=== PATIENT | female | born 1970 | race Caucasian/White ===

== ENCOUNTER 2024-11-13 22:33 | Emergency (ER) | payer BC ==
[~2024-11-13] VITALS: Ht 172.7 cm; Wt 70.9 kg
[2024-11-13 23:22] LABS: MEAN PLATELET VOLUME 7.9 FL (7.4-10.4); RED CELL DISTRIBUTION WIDTH 13.5 % (11.5-14.5)
[2024-11-13 23:30] LABS: CREATININE 0.86 MG/DL (0.40-0.90); TOTAL CARBON DIOXIDE 23.2 MMOL/L (24-32); eCRCL 77 ML/MIN; eGFR 69 ML/MIN
[2024-11-13 23:43] LABS: BANDS% (MANUAL) 1.0 % (0-10); EOSINOPHILS % (MANUAL) 2.0 % (0-6); LYMPHOCYTES % (MANUAL) 18.0 % (21-51); MONOCYTES % (MANUAL) 12.0 % (2-12); NEUTROPHILS % (MANUAL) 67.0 % (42-75)
[2024-11-13 23:44] LABS: PLATELET ESTIMATE NORMAL
--- NOTE | 2024-11-13 23:44 | Physician Documentation ---
History of Present Illness ~ Chief Complaint: Hyperglycemia Stated Complaint: HIGH KETONS Time Seen by MD: 23:42 OK to notify your PCP?: Yes Source: patient, RN/MD, RN notes reviewed, old records Mode of Arrival: POV Exam Limitations: no limitations HPI This patient is a 54-year-old female who presents to the ED with chief complaint of nausea and vomiting. Patient states she is a type 1 diabetic and has been having worsening nausea/vomiting since yesterday. Patient reports she did do a urine dip test tonight which showed she had high ketones in her urine. She also noted that her urine at the time appeared very dark. Patient states that these ketones in her urine, in addition to all of her symptoms over the past two days concerning for DKA. Patient notes that prior to arrival tonight, she did take Dramamine as well as Pepto-Bismol which she states has helped slightly improve her nausea. She states since her symptoms began yesterday she has been unable to keep down food and very little water; patient states that only recently she has been able to keep down a few sips of Gatorade. Patient denies any stomach issues or history of gastroparesis. Patient denies any other associated symptoms at this time. Patient denies any alleviating or exacerbating factors. Medication Reconciliation Allergies: Coded Allergies: No Known Allergies (Unverified , 11/14/24) Past Medical History Past Medical History: Kidney Stones, Diabetes, Lymphoma Past Surgical History: noncontributory Smoking Status: Never smoker Alcohol Use: None Drug Use: none Review of Systems All Other Systems at this time: Reviewed and Negative Gastrointestinal: Reports: nausea, vomiting Physical Exam Vital Signs: RN Vital Signs have been reviewed: Yes, Temperature: 97.9, Source: Oral, Heart Rate: 78, Respiratory Rate: 26, BP: 119/77, Pulse Oximetry: 99, Weight: 70.900 Oxygen Flow Rate: 0 Physical Exam General: The patient is well developed, well nourished, nontoxic appearing and is in no acute distress. Skin: [place], warm and dry with no rashes. HEENT: Head was normocephalic and atraumatic. Eyes - pupils equal, round, reactive to light and accommodation. Extraocular movements were intact. Conjunctivae were nonicteric. The mouth and oropharynx were clear with moist mucous membranes. There were no pharyngeal exudates or erythema. Neck: Supple and nontender. There was no jugular venous distention, lymphadenopathy, thyromegaly or masses. Chest: Clear to auscultation bilaterally without wheezes, rales or rhonchi. No accessory muscle use. No dullness to percussion. Heart: Rate regular and rhythmic. S1, S2. No murmurs. Palpation of the chest wall was normal. No rubs or thrills. Abdomen: Soft, nontender and nondistended. Positive bowel sounds. No guarding or rebound. No hepatosplenomegaly or palpable masses. Extremities: No cyanosis, clubbing or edema. The patient moves all extremities. Pulses were equal and symmetric. Neurologic: Cranial nerves II-XII were intact. Sensation was intact to light touch throughout. Motor strength was 5/5 in all four extremities. Deep tendon reflexes were intact in both upper and lower extremities. Psychologic: The patient was oriented to person, place and time. The patient demonstrated appropriate judgement and insight. Progress Progress Note RECORD REVIEW: Patient has no record of prior visits. Results/Orders Reviewed/noted all lab results: Yes Results/Orders Orders - AUTUMN DIAZ MD Urinalysis, Cult If Indicated (11/13/24 22:46) Hcg, Ur Ql (11/13/24 22:46) Drug Screen, Urine (11/13/24 23:45) Completed Orders - AUTUMN DIAZ MD Cbc/Diff (11/13/24 22:46) Lipase (11/13/24 22:46) CMP (11/13/24 22:46) Man Diff (11/13/24 23:07) Normal Saline 1000ml (0.9% Sodium Chlori (11/13/24 23:45) Ethanol (11/13/24 23:07) Normal Saline 1000ml (0.9% Sodium Chlori (11/14/24 01:00) Ondansetron Inj. (Zofran 4mg/2ml Vial) (11/14/24 02:20) Metoclopramide Inj (Reglan Inj) (11/14/24 02:20) Medications Received in ER Medications (Trade) Dose Ordered Sig/Beckie Route PRN Reason Start Time Stop Time Status Last Admin Dose Admin (0.9% sodium chloride (NS) 1000ml IV soln) 1,000 ml ONCE ONCE IVB 11/13/24 23:45 11/13/24 23:47 DC 11/14/24 00:06 1,000 ML Sodium Chloride 1,000 ml @ 1,000 mls/hr ONCE ONCE IV 11/14/24 01:00 11/14/24 01:59 DC 11/14/24 01:04 1,000 MLS/HR (Zofran 4mg/2ml vial) 4 mg ONCE ONCE IV 11/14/24 02:20 11/14/24 02:21 DC 11/14/24 02:36 4 MG (Reglan inj) 10 mg ONCE ONCE IV 11/14/24 02:20 11/14/24 02:21 DC 11/14/24 02:36 10 MG Vital Signs 11/13/24 11/13/24 11/14/24 11/14/24 22:36 23:21 00:00 00:11 Temp 97.9 97.9 Pulse 100 78 81 Resp 16 26 14 11 B/P (MAP) 124/81 119/77 (91) 123/76 (92) Pulse Ox 99 99 98 O2 Flow Rate 0 0 0 11/14/24 11/14/24 11/14/24 00:45 01:48 02:48 Temp 97.9 97.9 Pulse 74 73 81 Resp 20 15 14 B/P (MAP) 120/77 (91) 120/76 (91) 118/61 Pulse Ox 99 100 99 O2 Flow Rate 0 0 Laboratory Tests Test 11/13/24 22:43 11/13/24 23:07 Glucometer 170 H White Blood Count 7.8 Red Blood Count 5.26 Hemoglobin 15.0 Hematocrit 45.9 H Mean Corpuscular Volume 87.4 Mean Corpuscular Hemoglobin 28.5 Mean Corpuscular Hemoglobin Concent 32.6 L Red Cell Distribution Width 13.5 Platelet Count 298 Mean Platelet Volume 7.9 Neutrophils (%) (Auto) 63.7 Lymphocytes (%) (Auto) 18.4 L Monocytes (%) (Auto) 15.4 H Eosinophils (%) (Auto) 2.4 Basophils (%) (Auto) 0.1 Neutrophils # (Auto) 4.9 Lymphocytes # (Auto) 1.4 Monocytes # (Auto) 1.2 H Eosinophils # (Auto) 0.2 Basophils # (Auto) 0.0 CBC Comment Differential Total Cells Counted 100 Neutrophils % (Manual) 67.0 Band Neutrophils % 1.0 Lymphocytes % (Manual) 18.0 L Monocytes % (Manual) 12.0 Eosinophils % (Manual) 2.0 Platelet Estimate Normal Red Blood Cell Morphology Normal Basophilic Stippling Sodium Level 136 Potassium Level 4.0 Chloride Level 101 Carbon Dioxide Level 23.2 L Anion Gap 12 Blood Urea Nitrogen 17 Creatinine 0.86 Estimated GFR/1.73 m2 69 BUN/Creatinine Ratio 19.8 Glucose Level 185 H Calcium Level 9.1 Total Bilirubin 1.1 H Aspartate Amino Transf (AST/SGOT) 14 Alanine Aminotransferase (ALT/SGPT) 22 Alkaline Phosphatase 89 Total Protein 7.1 Albumin 3.9 Globulin 3.2 Albumin/Globulin Ratio 1.2 Lipase 13 L Chemistry Comments Ethyl Alcohol Level < 10 Re-Evaluation Re-Evaluation : Re-Evaluation: Improved, Unchanged Progress Patient was seen and examined. Patient is given reassurance. Patient had ketones concern for DKA been vomiting no fluids or meals for 48 hours traveling and has a flight tomorrow. Laboratory work was reassuring there was no leukocytosis CBC within normal limits chemistry shows a normal lipase normal LFTs and a glucose of 185 CO2 slightly low at 23 but no signs of significant ketoacidosis. Patient received 2 L of fluids. Unable to produce urine patient did receive Reglan and Zofran prior discharge after 2 L of fluids she was given some bread that she was able to eat she also had shallow prior feeling a bit better Accu-Cheks for reach evaluated and was 117. Patient stated she is feeling much better did not need any additional treatments and was requesting to be discharged. Patient was then discharged home to follow up with their physician advanced her diet gradually. Continuous gun mechanic interpretation shows normal sinus rhythm heart rate 70s, no ectopy, normal, my interpretation. Pulse oximetry monitor interpretation shows normal oxygenation at 98% room air, normal, my interpretation. Medical Decision Making Additional info obtained from: old records Differential Dx:Considerations: Include: Cholecysitis, Dehydration, Diabetes, Diabetic coma, DKA, Electrolyte abnormality, Encephalopathy, Gastritis, Hepatitis, Hyperglycemia, Hyperosmolar state, Hypoglycemia, Pancreatitis, Pyelonephritis, UTI, Other Departure Time of Disposition: 02:21 Disposition: 01 HOME / SELF CARE / HOMELESS Impression: Primary Impression: Hyperglycemia Additional Impression: Nausea & vomiting Qualified Codes: R11.2 - Nausea with vomiting, unspecified Condition: Stable Discharge Instructions: [place] Diet, Hyperglycemia, [id number] Additional Instructions: Stick to bland (refer to discharge instructions)\ foods such as chicken soup or broth over the next few days until you feel better. Follow up with your regular doctor as soon as possible. Referrals: NO PRIMARY CARE PROVIDER (PCP) Education Educated: Patient Educated regarding: diagnosis, treatment, need for follow up Signature Scribe Signature: Scribed for Autumn Diaz MD by Tessy Mixon . 11/14/24 00:01 Attestation: The note accurately reflects work and decisions made by me.Autumn Diaz MD 11/13/24 23:44 AUTUMN DIAZ MD Nov 13, 2024 23:44
[2024-11-14 00:04] LABS: ETHANOL < 10 MG/DL (<10)
[2024-11-14] MEDS: normal saline 1000ML IV soln IVB ONE (00:06)
[2024-11-14] MEDS: normal saline 1000ml 1,000 ML IV ONE (01:04)
[2024-11-14] MEDS: metoclopramide 5 mg/ml inj IV ONE (02:36)
[2024-11-14] MEDS: ondansetron/PF 4mg/2ml inj IV ONE (02:36)
[2024-11-14 02:48] VITALS: BP 118/61; PULSE 81; RESP 14; TEMP 97.9; O2SAT 99
== END 2024-11-14 02:50 | disposition home or self-care (01) ==
LOC: ER 22:35
DX: E10.65 Type 1 diabetes mellitus with hyperglycemia (principal); R11.2 Nausea with vomiting, unspecified; Z79.4 Long term (current) use of insulin
CPT/HCPCS: 36415; 80053; 80320; 82948; 83690; 85007; 85025; 96361; 96374; 96375; 99285; J2405; J2765; J7030